=== PATIENT | male | born 2000 | race Caucasian/White ===

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

== ENCOUNTER 2018-06-10 04:00 | Emergency (ER) | payer BC ==
[~2018-06-10] VITALS: Ht 185.4 cm; Wt 81.1 kg
[2018-06-10 04:04] VITALS: TEMP 36.8; Ht 185.4 cm; Wt 81.1 kg
[2018-06-10] MEDS ORDERED: LORAZEPAM 1 MG TAB SL STA (04:23)
--- NOTE | 2018-06-10 04:32 | EMERGENCY ROOM VISIT NOTE ---
History Report prepared by Yadi: Susu Lopez Under the Supervision of: Dr. Blair Paz M.D. First contact with patient: 04:09 Chief Complaint: MENTAL HEALTH EVALUATION Stated Complaint: 201 History of Present Illness The patient is a 17 year old male who presents to the Emergency Room with complaints of an episode of a mental health evaluation that started today. Per police, the patient called [employer] in [place] today, who contacted the police an hour later. The patient reportedly scaled an apartment building downtown and was sitting on the edge making a few phone calls before he wanted to jump off. The patient's brother then called him back and convinced the patient to get off the edge. The police were able to get in contact with the patient and convince him to report to the ED. The patient notes that he had been drinking alcohol today. After he got drunk, he claims he did not know what came over him and he suddenly wanted to end his life. He states that he tried to kill himself but that he could not. The patient reports that he has not tried to kill himself before. He notes that the only medication he takes is allergy medication. Source of History: patient Onset: today Position: head Quality: other (mental health evaluation) Timing: other (episode) Associated Symptoms: No fevers Review of Systems See HPI for pertinent positives & negatives. A total of 10 systems reviewed and were otherwise negative. Past Medical & Surgical Medical Problems: (1) Allergy Family History No pertinent family history Social History Smoking Status: Current Every Day Smoker Alcohol Use: occasionally Marital Status: single Occupation Status: [employer] student Current/Historical Medications No Active Prescriptions or Reported Meds Allergies Coded Allergies: Amoxicillin (Verified Allergy, Unknown, Unknown, 06/10/18) Penicillins (Verified Allergy, Unknown, Unknown, 06/10/18) Physical Exam Vital Signs Date Time Temp Pulse Resp B/P (MAP) Pulse Ox O2 Delivery O2 Flow Rate FiO2 06/10/18 15:14 76 20 121/81 99 06/10/18 08:41 74 18 100/49 98 Room Air 06/10/18 06:44 90 18 98/52 97 Room Air 06/10/18 04:04 36.8 87 18 126/72 97 Room Air Physical Exam GENERAL: Awake, alert, well-appearing, in no acute distress HENT: Normocephalic, atraumatic. Oropharynx unremarkable. EYES: Normal conjunctiva. Sclera non-icteric. NECK: Supple. No nuchal rigidity. FROM. No JVD. RESPIRATORY: Clear to auscultation. CARDIAC: Regular rate, normal rhythm. Extremities warm and well perfused. Pulses equal. ABDOMEN: Soft, non-distended. No tenderness to palpation. No rebound or guarding. No masses. RECTAL: Deferred. MUSCULOSKELETAL: Chest examination reveals no tenderness. The back is symmetrical on inspection without obvious abnormality. There is no CVA tenderness to palpation. No joint edema. LOWER EXTREMITIES: Calves are equal size bilaterally and non-tender. No edema. No discoloration. NEURO: Normal sensorium. No sensory or motor deficits noted. SKIN: No rash or jaundice noted. Medical Decision & Procedures Laboratory Results 06/10/18 04:27 Red Blood Count 4.77, Mean Corpuscular Volume 91.0, Mean Corpuscular Hemoglobin 33.1, Mean Corpuscular Hemoglobin Concent 36.4, Mean Platelet Volume 9.7, Neutrophils (%) (Auto) 66.9, Lymphocytes (%) (Auto) 27.9, Monocytes (%) (Auto) 3.9, Eosinophils (%) (Auto) 0.9, Basophils (%) (Auto) 0.3, Neutrophils # (Auto) 4.51, Lymphocytes # (Auto) 1.88, Monocytes # (Auto) 0.26, Eosinophils # (Auto) 0.06, Basophils # (Auto) 0.02 06/10/18 04:27 Test 06/10/18 04:15 06/10/18 04:27 Urine Color YELLOW Urine Appearance CLEAR (CLEAR) Urine pH 5.0 (4.5-7.5) Urine Specific [place] 1.007 (1.000-1.030) Urine Protein NEG (NEG) Urine Glucose (UA) NEG (NEG) Urine Ketones NEG (NEG) Urine Occult Blood NEG (NEG) Urine Nitrite NEG (NEG) Urine Bilirubin NEG (NEG) Urine Urobilinogen NEG (NEG) Urine Leukocyte Esterase NEG (NEG) Urine Opiates Screen NEG (NEG) Urine Methadone, Qualitative NEG (NEG) Urine Barbiturates NEG (NEG) Urine Phencyclidine (PCP) Level NEG (NEG) Ur Amphetamine/Methamphetamine NEG (NEG) MDMA (Ecstasy) Screen NEG (NEG) Urine Benzodiazepines Screen NEG (NEG) Urine Cocaine Metabolite NEG (NEG) Urine Marijuana (THC) NEG (NEG) White Blood Count 6.74 K/uL (4.8-10.8) Red Blood Count 4.77 M/uL (4.7-6.1) Hemoglobin 15.8 g/dL (14.0-18.0) Hematocrit 43.4 % (42-52) Mean Corpuscular Volume 91.0 fL (80-100) Mean Corpuscular Hemoglobin 33.1 pg (25-34) Mean Corpuscular Hemoglobin Concent 36.4 g/dl (32-36) Platelet Count 261 K/uL (130-400) Mean Platelet Volume 9.7 fL (7.4-10.4) Neutrophils (%) (Auto) 66.9 % Lymphocytes (%) (Auto) 27.9 % Monocytes (%) (Auto) 3.9 % Eosinophils (%) (Auto) 0.9 % Basophils (%) (Auto) 0.3 % Neutrophils # (Auto) 4.51 K/uL (1.4-6.5) Lymphocytes # (Auto) 1.88 K/uL (1.2-3.4) Monocytes # (Auto) 0.26 K/uL (0.11-0.59) Eosinophils # (Auto) 0.06 K/uL (0-0.5) Basophils # (Auto) 0.02 K/uL (0-0.2) RDW Standard Deviation 39.6 fL (36.4-46.3) RDW Coefficient of Variation 11.9 % (11.5-14.5) Immature Granulocyte % (Auto) 0.1 % Immature Granulocyte # (Auto) 0.01 K/uL (0.00-0.02) Anion Gap 9.0 mmol/L (3-11) Est Creatinine Clear Calc Drug Dose 152.6 ml/min Estimated GFR () 144.3 Estimated GFR (Non- 124.5 BUN/Creatinine Ratio 13.6 (10-20) Calcium Level 8.4 mg/dl (8.5-10.1) Total Bilirubin 0.3 mg/dl (0.2-1) Direct Bilirubin < 0.1 mg/dl (0-0.2) Aspartate Amino Transf (AST/SGOT) 39 U/L (15-37) Alanine Aminotransferase (ALT/SGPT) 38 U/L (12-78) Alkaline Phosphatase 70 U/L (45-117) Total Protein 8.1 gm/dl (6.4-8.2) Albumin 4.4 gm/dl (3.4-5.0) Thyroid Stimulating Hormone (TSH) 2.120 uIu/ml (0.300-4.500) Ethyl Alcohol mg/dL 185.0 mg/dl (0-3) Labs reviewed by ED physician. Medications Administered Medications (Trade) Dose Ordered Sig/Morris Route Start Time Stop Time Status Last Admin Dose Admin Lorazepam (Ativan Tab) 1 mg NOW STAT SL 06/10/18 04:23 06/10/18 04:25 DC 06/10/18 04:23 1 MG ED Course 0413: Past medical records reviewed. The patient was evaluated in room A6. A complete history and physical examination was performed. Medical Decision Etiologies such as mood disorder, infection, hypoglycemia, electrolyte abnormalities, cardiac sources, intracerebral event, toxicologic, neurologic, as well as others were entertained. This is a 17-year-old male threatened to jump off a building earlier this evening. Patient was talked down from the ledge by his brother. He arrives under 302 warrant by police. Upon arrival to the emergency department the patient is clinically intoxicated therefore alcohol level was obtained. The patient was given 1 mg of Ativan. The patient was signed out to Dr. Garland at change of shift pending sobering up and mental health evaluation. Medication Reconcilliation Current Medication List: was personally reviewed by me Impression Primary Impression: Mood disorder Scribe Attestation The scribe's documentation has been prepared under my direction and personally reviewed by me in its entirety. I confirm that the note above accurately reflects all work, treatment, procedures, and medical decision making performed by me. Departure Information Dispostion Still a Patient Prescriptions No Active Prescriptions or Reported Meds Referrals [facility] (PCP) Patient Instructions My [facility]
[2018-06-10 04:36] LABS: BASO % 0.3 %; BASO ABS # 0.02 K/uL (0-0.2); EOS % 0.9 %; EOS ABS # 0.06 K/uL (0-0.5); HEMATOCRIT 43.4 % (42-52); HEMOGLOBIN 15.8 g/dL (14.0-18.0); IG# 0.01 K/uL (0.00-0.02); LYMPH % 27.9 %; LYMPH ABS # 1.88 K/uL (1.2-3.4); MEAN CORPUSCULAR HEMOGLOBIN 33.1 pg (25-34); MEAN CORPUSCULAR HGB CONC 36.4 g/dl (32-36); MEAN PLATELET VOLUME 9.7 fL (7.4-10.4); MONO % 3.9 %; MONO ABS # 0.26 K/uL (0.11-0.59); NEUT % 66.9 %; NEUT ABS # 4.51 K/uL (1.4-6.5); PLATELET COUNT 261 K/uL (130-400); RED CELL DISTRIBUTION WIDTH CV 11.9 % (11.5-14.5); RED CELL DISTRIBUTION WIDTH SD 39.6 fL (36.4-46.3); WHITE BLOOD COUNT 6.74 K/uL (4.8-10.8)
[2018-06-10 05:11] LABS: ALBUMIN 4.4 gm/dl (3.4-5.0); ALKALINE PHOSPHATASE 70 U/L (45-117); ALT/SGPT 38 U/L (12-78); AST/SGOT 39 U/L (15-37); BLOOD UREA NITROGEN 12 mg/dl (7-18); CALCIUM 8.4 mg/dl (8.5-10.1); CARBON DIOXIDE 22 mmol/L (21-32); CREATININE 0.88 mg/dl (0.60-1.40); GLUCOSE 87 mg/dl (70-99); POTASSIUM 3.8 mmol/L (3.5-5.1); SODIUM 142 mmol/L (136-145); TOTAL PROTEIN 8.1 gm/dl (6.4-8.2)
--- NOTE | 2018-06-10 10:03 | EMERGENCY ROOM VISIT NOTE ---
ED Visit Note First contact with patient: 06:47 The patient was taken in signout from Dr. Paz at the change of shift. Please see that note for details. The patient was pending clearance of alcohol intoxication and mental health evaluation. The patient's intoxication cleared. He was evaluated by mental health. Because of his suicidal issues he was reviewed for inpatient treatment. The patient was voluntary. He was accepted at [facility]. Secure transport via the constable was arranged. The patient was sent to [facility] for further management.
[2018-06-10 15:14] VITALS: BP 121/81; PULSE 76; O2SAT 99
== END 2018-06-10 15:30 ==
LOC: C.EDB 04:02 → C.EDA 15:30
DX: F39 Unspecified mood [affective] disorder (principal); F10.129 Alcohol abuse with intoxication, unspecified; Y90.6 Blood alcohol level of 120-199 mg/100 ml; R45.851 Suicidal ideations; F17.200 Nicotine dependence, unspecified, uncomplicated; Z88.0 Allergy status to penicillin